=== PATIENT | male | born 1995 | race Caucasian/White ===

== ENCOUNTER 2017-09-28 01:15 | Emergency (ER) | payer MEDICAID, OTHER ==
[~2017-09-28] VITALS: Ht 177.8 cm; Wt 63.5 kg
[2017-09-28 01:26] VITALS: BP 131/84
== END 2017-09-28 03:52 | disposition left against medical advice (07) ==
LOC: ER 01:15
DX: S01.01XA Laceration without foreign body of scalp, initial encounter (principal); Z53.21 Procedure and treatment not carried out due to patient leaving prior to being seen by health care provider; W22.8XXA Striking against or struck by other objects, initial encounter; Y93.89 Activity, other specified; Y92.89 Other specified places as the place of occurrence of the external cause; Y99.8 Other external cause status

== ENCOUNTER 2018-11-17 18:56 | Emergency (ER) | payer SELFPAY ==
[~2018-11-17] VITALS: Ht 180.3 cm; Wt 63.5 kg
[2018-11-17 19:08] VITALS: BP 123/71
[2018-11-17] MEDS ORDERED: KETOROLAC TROMETH 30 MG/ML 1ML VIAL IV ONE (19:15)
[2018-11-17] MEDS ORDERED: SODIUM CHLORIDE 0.9% 1,000 ML IV ONE (19:15)
[2018-11-17 20:16] LABS: Basophils # (auto) 0.1 uL; Basophils % (auto) 0.7 % (0.0-2.0); Eosinophils # (auto) 0.1 uL; Eosinophils % (auto) 1.4 % (0.0-7.0); Hematocrit 49.8 % (41.0-53.0); Hemoglobin 17.6 g/dL (13.5-17.5); Lymphocytes % (auto) 28.8 % (10.0-50.0); Mean Corpuscular Hgb Conc. 35.3 g/dL (32.0-36.0); Mean Corpuscular Volume 90.7 fL (80.0-100.0); Monocytes # (auto) 0.6 uL; Neutrophils # (auto) 6.5 uL; Neutrophils % (auto) 63.1 % (37.0-80.0); Nucleated Red Blood Cells % 0.1 %; Platelet Count (auto) 208 10^3/uL (140-450); Red Blood Cells 5.49 10^6/uL (4.5-5.90); Red Cell Distribution Width 12.6 % (11.8-14.3); White Blood Cell 10.3 10^3/uL (4.4-10.8)
[2018-11-17 20:42] LABS: Albumin 4.7 g/dL (3.4-5.0); Calcium 9.3 mg/dL (8.5-10.1)
[2018-11-17 20:46] LABS: BUN/Creatinine Ratio 7.1; Bilirubin, Total 0.3 mg/dL (0.2-1.0); Total Protein 8.7 g/dL (6.4-8.2)
== END 2018-11-17 19:32 | disposition home or self-care (01) ==
LOC: EDBD 18:56 → ER 18:56
DX: R07.89 Other chest pain (principal); F10.920 Alcohol use, unspecified with intoxication, uncomplicated; Y90.0 Blood alcohol level of less than 20 mg/100 ml
CPT/HCPCS: 36415; 71045; 80053; 80320; 85025; 93005